=== PATIENT | female | born 1990 | race Asian ===

== ENCOUNTER 2019-02-22 10:15 | Emergency (ER) | payer SELFPAY, OTHER ==
[2019-02-22 11:57] LABS: ADD UMIC NO; UR ASCORBIC ACID NEGATIVE (NEGATIVE); UR BACTERIA FEW /HPF (NONE SEEN); UR BILIRUBIN (Dip) NEGATIVE (NEGATIVE); UR BLOOD (Dip) NEGATIVE (NEGATIVE); UR CLARITY SLIGHTLY CLOUDY (CLEAR); UR COLOR STRAW (YELLOW); UR GLUCOSE (Dip) NEGATIVE (NEGATIVE); UR KETONES (Dip) NEGATIVE (NEGATIVE); UR LEUKOCYTE ESTERASE (Dip) NEGATIVE Leu/ul (NEGATIVE); UR NITRITE (Dip) NEGATIVE (NEGATIVE); UR RBC 1 /HPF (0-5); UR SPECIFIC GRAVITY (Dip) 1.003 (1.003-1.030); UR SQUAMOUS EPITHELIAL CELL FEW /HPF (FEW); UR TOTAL PROTEIN (Dip) NEGATIVE (NEGATIVE); UR UROBILINOGEN (Dip) NEGATIVE (NEGATIVE); UR WBC 0 /HPF (0-5)
== END 2019-02-22 12:26 | disposition home or self-care (01) ==
LOC: FTE 10:15
DX: O26.851 Spotting complicating pregnancy, first trimester (principal); R31.9 Hematuria, unspecified; Z3A.01 Less than 8 weeks gestation of pregnancy
CPT/HCPCS: 81001; 81003; 87086; 99283

== ENCOUNTER 2019-03-02 15:57 | Emergency (ER) | payer MEDICAID ==
[2019-03-02] MEDS: CEFTRIAXONE 1 GM INJ IM (18:36)
[2019-03-02] MEDS: OXYCODONE/ACETAMINOPHEN (5/325) TAB PO (18:36)
[2019-03-02] MEDS: CLINDAMYCIN 150 MG CAP PO (18:40)
[2019-03-02] MEDS: CLINDAMYCIN 300 MG CAP PO (18:47)
== END 2019-03-02 19:14 | disposition home or self-care (01) ==
LOC: FTE 15:57
DX: O99.711 Diseases of the skin and subcutaneous tissue complicating pregnancy, first trimester (principal); L02.412 Cutaneous abscess of left axilla; L04.2 Acute lymphadenitis of upper limb; Z3A.09 9 weeks gestation of pregnancy
CPT/HCPCS: 96372; 99284-25